=== PATIENT | female | born 1960 | race Caucasian/White ===

== ENCOUNTER 2023-04-22 07:38 | Outpatient (REF) | payer OTHER, SELFPAY ==
--- NOTE | ~2023-04-22 | MM_ITS ---
EXAMINATION: MM SCREENING DIGITAL BREAST TOMOSYNTHESIS, BILATERAL CLINICAL INFORMATION: Screening. Asymptomatic. COMPARISON: Mammography: This study is compared with prior exams dating back to 2013. TECHNIQUE: Digital breast tomosynthesis is performed in both the craniocaudal and mediolateral oblique views along with computer-aided detection (CAD). Synthesized 2D images are generated from the tomosynthesis. FINDINGS: There are scattered areas of fibroglandular density (ACR BI-RADS breast composition Category b). There are no significant masses, abnormal calcifications, or other abnormalities. MM/MM tomosynthesis screening BI IMPRESSION: No mammographic evidence of malignancy. ASSESSMENT: BI-RADS BI-RADS 1 - Negative RECOMMENDATION: Routine annual mammography screening. 1 year F/U This examination should not preclude the clinical evaluation of a suspicious palpable abnormality. This patient's information was entered into a reminder system with a target due date for their next mammogram.
== END 2023-04-22 07:39 | disposition home or self-care (01) ==
LOC: HO.MAMMO 07:38
PROVIDERS: PCP Internal Medicine; Visit Provider Internal Medicine
DX: Z12.31 Encounter for screening mammogram for malignant neoplasm of breast (principal)
CPT/HCPCS: 77063; 77067

== ENCOUNTER → 2023-04-22 07:45 | Outpatient (BNV) | payer OTHER, SELFPAY | PROVIDERS: PCP Internal Medicine; Visit Provider Radiology Diagnostic Radiology | DX: Z12.31 Encounter for screening mammogram for malignant neoplasm of breast (principal) | CPT/HCPCS: 77063; 77067 ==

== ENCOUNTER 2023-12-29 15:00 | Outpatient (AMB) | payer OTHER, SELFPAY ==
--- NOTE | 2023-12-29 15:17 | A.OFFVIS_ITS ---
Vital Signs 12/29/23 15:18 Height 5 ft 4 in Weight 187 lb BMI 32.1 Pulse 88 Pulse Source Pulse Oximeter Pulse Oximetry (%) 96 Oxygen Delivery Method Room Air Intake Visit Reasons: COPD Data Analytics Architect Required: No Allergies No Known Allergies Allergy (Unverified 12/29/23 15:19) HPI Comments Details: The patient is here for pulmonary evaluation. The patient is a 63 year woman with a known history of COPD presenting with worsening respiratory symptoms. The patient states that she has a hard time quitting smoking. She has been smoking for most of her life. She did do very well on Chantix where she almost quit smoking where she was down to 2 cigarettes a day. Although she was trying to quit smoking with the and that made it difficult. The patient will try again quitting with the by using the same protocol which is the nicotine patch. She can also consider Wellbutrin. In the meantime she has productive cough with yellowish phlegm. Moderate severity. She has component of chronic bronchitis. The patient can try azithromycin 3 times a week least 4 month or 2 to see the improvements. The patient also has significant tachycardia with minimal activity. Heart rate was up to 116. Oxygen was stable. Will go ahead and request an EKG to make sure that her intervals are stable specially while using azithromycin. The patient also undergo a PFTs and then she will have a evaluation. She is participating in the lung cancer screening program at [facility]. Last CT scan was rads 1 which is reassuring. She will continue to participate there with a CT scans. [facility] Medical History (Updated 12/31/23 @ 23:27 by Jerrod Capps MD) Tobacco dependence Dyspnea Chronic cough Tachycardia COPD (chronic obstructive pulmonary disease) Social History (Updated 12/29/23 @ 15:21 by NENA Steen) Patient Tobacco Use Status: Current everyday Tobacco user Tobacco use type: Cigarette Years Smoked: 40 Years Review of Systems Const Denies fever(s) Eyes Reports no additional complaints ENT Reports nasal congestion Card Denies chest pain and Reports dyspnea on exertion Resp Reports chest congestion, Reports cough, Reports dyspnea on exertion and Reports wheezing GI Reports no additional complaints Musc Reports no additional complaints Skin/Breast Denies rash Aller/Immun Reports wheezing Physical Exam Vital Signs: Last Vital Signs Pulse 88 12/29/23 15:18 Pulse Ox 96 12/29/23 15:18 Oxygen Delivery Method Room Air 12/29/23 15:18 BMI result Body Mass Index 32.1 Const General: comfortable Neck Neck: Yes supple Chest Chest palpation & inspection: normal inspection of the chest Resp Effort & Inspection: normal respiratory effort and prolonged expiratory phase Auscultation: rhonchi and diminished lung sounds Cardio Heart sounds: S1 normal heart sound present and S2 normal heart sound present GI Palpation (GI): Soft to palpation Skin General skin exam: no rashes or lesions noted Extrem General: No clubbing and No cyanosis Assessment & Plan Assessment & Plan (1) COPD (chronic obstructive pulmonary disease): Code(s): J44.9 - Chronic obstructive pulmonary disease, unspecified Category: Medical Qualifiers: COPD type: chronic bronchitis Chronic bronchitis type: mixed simple and mucopurulent Qualified Code(s): J41.8 - Mixed simple and mucopurulent chronic bronchitis (2) Tachycardia: Code(s): R00.0 - Tachycardia, unspecified Category: Medical (3) Chronic cough: Code(s): R05.3 - Chronic cough Category: Medical (4) Dyspnea: Code(s): R06.00 - Dyspnea, unspecified Category: Medical Qualifiers: Dyspnea type: dyspnea on exertion Qualified Code(s): R06.09 - Other forms of dyspnea (5) Tobacco dependence: Code(s): F17.200 - Nicotine dependence, unspecified, uncomplicated Category: Medical Plan start Trelegy dailu GABRIEL as needed tobacco cessation: will use the patch, consider chantix Start Azithromycin 6-8 weeks EKG PFTs F/U 2-3 months Orders: Orders PFT pulmonary function test Today J41.8 - Mixed simple and mucopurulent chroni c bronchitis Medications: New azithromycin Take 1 tablet on Monday/Monday/Monday 250 mg PO 3XW 28 days 12 tabs 1RF K21.9 - Gastro-esophageal reflux disease without esophagitis nicotine 1 patch transdermal DAILY 28 days 28 ea 6RF [id number] 200-62.5-25 mcg (Trelegy Ellipta) 1 inh inhalation DAILY 30 days 60 ea 12RF Coding Level of Care Code New Pt Level 4 (97287) Diagnoses Mixed simple and mucopurulent chronic bronchitis J41.8 COPD type: chronic bronchitis Chronic bronchitis type: mixed simple and mucopurulent Tachycardia R00.0 Chronic cough R05.3 Dyspnea on exertion R06.09 Dyspnea type: dyspnea on exertion Tobacco dependence F17.200 Time Spent (min) 40
[2023-12-29 15:18] VITALS: PULSE 88; O2SAT 96; BMI 32.1
== END 2023-12-29 15:57 | disposition home or self-care (01) ==
PROVIDERS: PCP Internal Medicine; Visit Provider Hospitalist
DX: J41.8 Mixed simple and mucopurulent chronic bronchitis (principal); R00.0 Tachycardia, unspecified; R05.3 Chronic cough; R06.09 Other forms of dyspnea; F17.200 Nicotine dependence, unspecified, uncomplicated
CPT/HCPCS: 99204

== ENCOUNTER → 2023-12-29 15:00 | Outpatient (BNVA) | payer OTHER, SELFPAY | PROVIDERS: PCP Internal Medicine; Visit Provider Hospitalist ==

== ENCOUNTER 2024-02-16 08:41 | Outpatient (REF) | payer OTHER, SELFPAY ==
[2024-02-16 08:05] VITALS: PULSE 80; RESP 16; O2SAT 99
--- NOTE | 2024-02-16 09:00 | PFT_ITS ---
Flows: FEV1: 81 % of predicted at 1.19 L FVC: 86 % of predicted at 2.58 L FEV1/FVC: 74 % Bronchodilator response: Absent Volumes: Total lung capacity: 92 % of predicted at 4.63 L Residual volume: 120 % of predicted at 2.19 L Slow vital capacity: 76 % of predicted at 2.44 L Expiratory reserve volume: 38 % of predicted at 0.29 L Diffusion capacity: Normal Impression: No obstructive or restrictive ventilatory defect. No bronchodilator response. Increased residual volume suggests air trapping. Decreased expiratory reserve volume suggests extrathoracic restriction likely secondary to abdominal obesity. MTDD
== END 2024-02-16 08:42 | disposition home or self-care (01) ==
LOC: HO.RESP 08:41
PROVIDERS: PCP Family Medicine; Visit Provider Hospitalist
DX: J41.8 Mixed simple and mucopurulent chronic bronchitis (principal)
CPT/HCPCS: 94010; 94640; 94727; 94729

== ENCOUNTER 2024-02-23 08:42 | Outpatient (AMB) | payer OTHER, SELFPAY ==
[2024-02-23 09:00] VITALS: BP 126/60; PULSE 86; O2SAT 97; BMI 31.9
--- NOTE | 2024-02-23 09:00 | A.OFFVIS_ITS ---
Vital Signs 02/23/24 09:00 Height 5 ft 4 in Weight 185 lb 10.067 oz BMI 31.9 BP 126/60 Blood Pressure Location Lt brachial Position Sitting Pulse 86 Pulse Source Pulse Oximeter Pulse Oximetry (%) 97 Oxygen Delivery Method Room Air Intake Visit Reasons: COPD Document Control Manager Required: No Allergies No Known Allergies Allergy (Unverified 02/23/24 09:03) HPI Comments Details: The patient is a 63 year woman with a known history of COPD presenting with worsening respiratory symptoms. The patient states that she has a hard time quitting smoking. She has been smoking for most of her life. She did do very well on Chantix where she almost quit smoking where she was down to 2 cigarettes a day. Although she was trying to quit smoking with the and that made it difficult. The patient will try again quitting with the by using the same protocol which is the nicotine patch. She can also consider Wellbutrin. In the meantime she has productive cough with yellowish phlegm. Moderate severity. She has component of chronic bronchitis. The patient can try azithromycin 3 times a week least 4 month or 2 to see the improvements. The patient also has significant tachycardia with minimal activity. Heart rate was up to 116. Oxygen was stable. Will go ahead and request an EKG to make sure that her intervals are stable specially while using azithromycin. The patient also undergo a PFTs and then she will have a evaluation. She is participating in the lung cancer screening program at [facility]. Last CT scan was rads 1 which is reassuring. She will continue to participate there with a CT scans. 02/23/2024 the patient is here for a pulmonary follow-up visit. Overall she is doing okay. Unfortunately she continues to smoke cigarettes. She has not put on the patch as of yet. She has not ready to quit altogether. She is thinking about it. We did review her pulmonary function studies in the actually look pretty decent. The patient does have a trend of air trapping and does have evidence of chronic bronchitis but no significant obstruction at this time. In addition to that she did try the azithromycin for few weeks. She did not see any significant improvement. She still has chronic bronchitis. In view of her significant chronic bronchitis she will be a good candidate for Daliresp. I will start her on small dose of 250 mcg. She understands about the adverse effects and GI symptoms. Hopefully she can develop tolerance and then continue the medicine. In addition to that she has been participating in the lung cancer screening program at [facility]. She has not been called yet but she is due for CT scan the summer. If she does not hear back by the end of the summer she can always call and we can establish her at [facility]. Otherwise follow-up in 6 months she will continue with current respiratory therapy if she has any new issues she can call for an earlier assessment. [facility] Medical History (Updated 12/31/23 @ 23:27 by Jerrod Capps MD) Tobacco dependence Dyspnea Chronic cough Tachycardia COPD (chronic obstructive pulmonary disease) Social History (Updated 12/29/23 @ 15:21 by NENA Steen) Patient Tobacco Use Status: Current everyday Tobacco user Tobacco use type: Cigarette Years Smoked: 40 Years Review of Systems Const Denies fever(s) Eyes Reports no additional complaints ENT Reports nasal congestion Card Denies chest pain and Reports dyspnea on exertion Resp Reports chest congestion, Reports cough, Reports dyspnea on exertion and Reports wheezing GI Reports no additional complaints Musc Reports no additional complaints Skin/Breast Denies rash Aller/Immun Reports wheezing Physical Exam Vital Signs: Last Vital Signs Pulse 86 02/23/24 09:00 BP 126/60 02/23/24 09:00 Pulse Ox 97 02/23/24 09:00 Oxygen Delivery Method Room Air 02/23/24 09:00 BMI result Body Mass Index 31.9 Const General: comfortable Neck Neck: Yes supple Chest Chest palpation & inspection: normal inspection of the chest Resp Effort & Inspection: normal respiratory effort and prolonged expiratory phase Auscultation: rhonchi and diminished lung sounds Cardio Heart sounds: S1 normal heart sound present and S2 normal heart sound present GI Palpation (GI): Soft to palpation Skin General skin exam: no rashes or lesions noted Extrem General: No clubbing and No cyanosis Assessment & Plan Assessment & Plan (1) COPD (chronic obstructive pulmonary disease): Code(s): J44.9 - Chronic obstructive pulmonary disease, unspecified Category: Medical Qualifiers: COPD type: chronic bronchitis Chronic bronchitis type: mixed simple and mucopurulent Qualified Code(s): J41.8 - Mixed simple and mucopurulent chronic bronchitis (2) Tachycardia: Code(s): R00.0 - Tachycardia, unspecified Category: Medical (3) Chronic cough: Code(s): R05.3 - Chronic cough Category: Medical (4) Dyspnea: Code(s): R06.00 - Dyspnea, unspecified Category: Medical Qualifiers: Dyspnea type: dyspnea on exertion Qualified Code(s): R06.09 - Other forms of dyspnea (5) Tobacco dependence: Code(s): F17.200 - Nicotine dependence, unspecified, uncomplicated Category: Medical Plan continue Trelegy daily GABRIEL as needed tobacco cessation: will use the patch, consider chantix Stop Azithromycin Add Daliresp 250mcg LDCT at [facility] F/U 6 months Medications: New roflumilast (Daliresp) 250 mcg PO DAILY 30 tabs 11RF 30 days J44.9 - Chronic obstructive pulmonary disease, unspecified Coding Level of Care Code Est Pt Level 4 (93631) Diagnoses Mixed simple and mucopurulent chronic bronchitis J41.8 COPD type: chronic bronchitis Chronic bronchitis type: mixed simple and mucopurulent Tachycardia R00.0 Chronic cough R05.3 Dyspnea on exertion R06.09 Dyspnea type: dyspnea on exertion Tobacco dependence F17.200 Time Spent (min) 16
== END 2024-02-23 09:18 | disposition home or self-care (01) ==
PROVIDERS: PCP Internal Medicine; Visit Provider Hospitalist
DX: J41.8 Mixed simple and mucopurulent chronic bronchitis (principal); R00.0 Tachycardia, unspecified; R05.3 Chronic cough; R06.09 Other forms of dyspnea; F17.200 Nicotine dependence, unspecified, uncomplicated
CPT/HCPCS: 99214

== ENCOUNTER → 2024-02-23 08:42 | Outpatient (BNVA) | payer OTHER, SELFPAY | PROVIDERS: PCP Internal Medicine; Visit Provider Hospitalist | DX: K21.9 Gastro-esophageal reflux disease without esophagitis (principal) ==

== ENCOUNTER 2024-04-27 07:34 | Outpatient (REF) | payer OTHER, SELFPAY ==
--- NOTE | ~2024-04-27 | MM_ITS ---
EXAMINATION: MM SCREENING DIGITAL BREAST TOMOSYNTHESIS, BILATERAL CLINICAL INFORMATION: Screening. Asymptomatic. COMPARISON: Mammography: Comparison is made with available priors TECHNIQUE: Digital breast mammography with tomosynthesis is performed in both the craniocaudal and mediolateral oblique views along with computer-aided detection (CAD). FINDINGS: There are scattered areas of fibroglandular density (ACR BI-RADS breast composition Category b). There are no significant masses, abnormal calcifications, or other abnormalities. MM/MM tomosynthesis screening BI IMPRESSION: No mammographic evidence of malignancy. ASSESSMENT: BI-RADS BI-RADS 1 - Negative RECOMMENDATION: Routine annual mammography screening. 1 year F/U This examination should not preclude the clinical evaluation of a suspicious palpable abnormality. This patient's information was entered into a reminder system with a target due date for their next mammogram. Electronically signed by: Dora Bryson DO 05/10/2024 08:55 AM EDT
== END 2024-04-27 07:35 | disposition home or self-care (01) ==
LOC: HO.MAMMO 07:34
PROVIDERS: PCP Internal Medicine; Visit Provider Internal Medicine
DX: Z12.31 Encounter for screening mammogram for malignant neoplasm of breast (principal)
CPT/HCPCS: 77063; 77067

== ENCOUNTER → 2024-04-27 07:45 | Outpatient (BNV) | payer OTHER, SELFPAY | PROVIDERS: PCP Internal Medicine; Visit Provider Internal Medicine | DX: Z12.31 Encounter for screening mammogram for malignant neoplasm of breast (principal) | CPT/HCPCS: 77063; 77067 ==

== ENCOUNTER 2024-08-23 08:53 | Outpatient (AMB) | payer OTHER, SELFPAY ==
--- NOTE | 2024-08-23 08:56 | A.OFFVIS_ITS ---
Vital Signs 08/23/24 08:57 Height 5 ft 4 in Weight 190 lb 11.198 oz BMI 32.7 BP 122/64 Blood Pressure Location Rt brachial Position Sitting Pulse 74 Pulse Source Pulse Oximeter Pulse Oximetry (%) 99 Oxygen Delivery Method Room Air Intake Visit Reasons: COPD Allergies No Known Allergies Allergy (Unverified 08/23/24 09:00) HPI Comments Details: The patient is a 64 year woman with a known history of COPD presenting with worsening respiratory symptoms. The patient states that she has a hard time quitting smoking. She has been smoking for most of her life. She did do very well on Chantix where she almost quit smoking where she was down to 2 cigarettes a day. Although she was trying to quit smoking with the and that made it difficult. The patient will try again quitting with the by using the same protocol which is the nicotine patch. She can also consider Wellbutrin. In the meantime she has productive cough with yellowish phlegm. Moderate severity. She has component of chronic bronchitis. The patient can try azithromycin 3 times a week least 4 month or 2 to see the improvements. The patient also has significant tachycardia with minimal activity. Heart rate was up to 116. Oxygen was stable. Will go ahead and request an EKG to make sure that her intervals are stable specially while using azithromycin. The patient also undergo a PFTs and then she will have a evaluation. She is participating in the lung cancer screening program at [facility]. Last CT scan was rads 1 which is reassuring. She will continue to participate there with a CT scans. 02/23/2024 the patient is here for a pulmonary follow-up visit. Overall she is doing okay. Unfortunately she continues to smoke cigarettes. She has not put on the patch as of yet. She has not ready to quit altogether. She is thinking about it. We did review her pulmonary function studies in the actually look pretty decent. The patient does have a trend of air trapping and does have evidence of chronic bronchitis but no significant obstruction at this time. In addition to that she did try the azithromycin for few weeks. She did not see any significant improvement. She still has chronic bronchitis. In view of her significant chronic bronchitis she will be a good candidate for Daliresp. I will start her on small dose of 250 mcg. She understands about the adverse effects and GI symptoms. Hopefully she can develop tolerance and then continue the medicine. In addition to that she has been participating in the lung cancer screening program at [facility]. She has not been called yet but she is due for CT scan the summer. If she does not hear back by the end of the summer she can always call and we can establish her at [facility]. Otherwise follow-up in 6 months she will continue with current respiratory therapy if she has any new issues she can call for an earlier assessment. 08/23/2024 the patient is here for a pulmonary follow-up visit. The patient overall has been doing about the same. She is using the Trelegy. She still complains of productive cough moderate secretions. Difficult to expectorate sometimes. She feels that she is not taking enough water. Unfortunately she is still smoking cigarettes. She has not tried the patch because she is not ready to do that yet. Although we did talk about the Nicotrol inhaler. It may not be available but if it is she can try it. I did instruct her on how to use it if she can get it. I also gave her information about the quitting program here [place] so she can seek for further guidance when she is ready. She is participating in the lung cancer screening program I [facility]. She apparently had a CT scan in the fall I do not have those results but she was told that it was okay. In addition to that she has been tolerating the Daliresp. Seems to be well without any adverse effects. She is on the lower dose will going to increase to the 500 mcg dose for the therapeutic effect. The patient returns in the fall of 2024. She has not issues prior to that she will call for an earlier assessment. [facility] Medical History (Updated 12/31/23 @ 23:27 by Jerrod Capps MD) Tobacco dependence Dyspnea Chronic cough Tachycardia COPD (chronic obstructive pulmonary disease) Social History (Updated 08/23/24 @ 09:00 by Shirley Vaughan CMA) Patient Tobacco Use Status: Current everyday Tobacco user Tobacco use type: Cigarette Cigarettes Per Day: 15 Years Smoked: 40 Years Review of Systems Const Denies fever(s) Eyes Reports no additional complaints ENT Reports nasal congestion Card Denies chest pain and Reports dyspnea on exertion Resp Reports chest congestion, Reports cough, Reports dyspnea on exertion and Reports wheezing GI Reports no additional complaints Musc Reports no additional complaints Skin/Breast Denies rash Aller/Immun Reports wheezing Physical Exam Vital Signs: Last Vital Signs Pulse 74 08/23/24 08:57 BP 122/64 08/23/24 08:57 Pulse Ox 99 08/23/24 08:57 Oxygen Delivery Method Room Air 08/23/24 08:57 BMI result Body Mass Index 32.7 Const General: comfortable Neck Neck: Yes supple Chest Chest palpation & inspection: normal inspection of the chest Resp Effort & Inspection: normal respiratory effort and prolonged expiratory phase Auscultation: rhonchi and diminished lung sounds Cardio Heart sounds: S1 normal heart sound present and S2 normal heart sound present GI Palpation (GI): Soft to palpation Skin General skin exam: no rashes or lesions noted Extrem General: No clubbing and No cyanosis Assessment & Plan Assessment & Plan (1) COPD (chronic obstructive pulmonary disease): Code(s): J44.9 - Chronic obstructive pulmonary disease, unspecified Category: Medical Qualifiers: COPD type: chronic bronchitis Chronic bronchitis type: mixed simple and mucopurulent Qualified Code(s): J41.8 - Mixed simple and mucopurulent chronic bronchitis (2) Chronic cough: Code(s): R05.3 - Chronic cough Category: Medical (3) Dyspnea: Code(s): R06.00 - Dyspnea, unspecified Category: Medical Qualifiers: Dyspnea type: dyspnea on exertion Qualified Code(s): R06.09 - Other forms of dyspnea (4) Tobacco dependence: Code(s): F17.200 - Nicotine dependence, unspecified, uncomplicated Category: Medical Plan continue Trelegy daily GABRIEL as needed tobacco cessation: will use the patch, consider chantix Stopped Azithromycin increase Daliresp 500mcg LDCT at [facility] F/U 6-8 months Medications: New roflumilast (Daliresp) 500 mcg PO DAILY 30 tabs 11RF 30 days nicotine (Nicotrol) 10 mg inhalation Q2-4H 168 ea 0RF nicotine cravings 30 days Discontinued roflumilast (Daliresp) Discontinued Reason: Doctor's Order 250 mcg PO DAILY 30 days 30 tabs 11RF J44.9 - Chronic obstructive pulmonary disease, unspecified Coding Level of Care Code Est Pt Level 4 (88692) Diagnoses Mixed simple and mucopurulent chronic bronchitis J41.8 COPD type: chronic bronchitis Chronic bronchitis type: mixed simple and mucopurulent Chronic cough R05.3 Dyspnea on exertion R06.09 Dyspnea type: dyspnea on exertion Tobacco dependence F17.200 Time Spent (min) 16
[2024-08-23 08:57] VITALS: BP 122/64; PULSE 74; O2SAT 99; BMI 32.7
== END 2024-08-23 09:14 | disposition home or self-care (01) ==
PROVIDERS: PCP Internal Medicine; Visit Provider Hospitalist
DX: J41.8 Mixed simple and mucopurulent chronic bronchitis (principal); R05.3 Chronic cough; R06.09 Other forms of dyspnea; F17.200 Nicotine dependence, unspecified, uncomplicated
CPT/HCPCS: 99214

== ENCOUNTER 2025-04-28 08:48 | Outpatient (AMB) | payer OTHER, SELFPAY ==
--- OUTSIDE RECORDS SUMMARY | 2025-04-23 09:00 | XMS_ITS | Encounter Summary ---
Author Organization [facility] Address [address] [place] [address] Phone Care Team Providers Care Boiler Out Name Role Phone Jose Nails MD Unavailable Salvador Drew PA-C Primary Care Provider [phone] Reason for Referral * MRI/CAT Scan - Authorized Specialty Diagnoses / Procedures Referred By Contpablo t Referred To Contact Radiology Diagnoses Cigarette smoker Procedures CT Chest Lung Cancer Screening Initial Or Annual CHG COMPUTED TOMOGRAPHY THORAX LW DOSE LNG CA SCR C- Salvador Drew PA-C [address] [place], [place] Phone: tel: fax: [email or web address] Referral ID Status Reason Start Date Expiration Date V isits Requested Visits Authorized [id number] Authorized 04/23/2025 06/22/2025 1 1 Reason for Visit * Reason Comments Follow Up Visit 6 month Encounter Details Date Type Department Care Team (Latest Contact Info) Description 04/23/2025 9:00 AM EDT Office Visit [facility] [place] Internal [facility] [address] [place] [address] Salvador Drew PA-C [address] [place], [place] [email or web address] Chronic upper back pain (Primary Dx); Chronic, continuous use of opioids; Flu vaccine need; Diet-controlled diabetes mellitus; Cigarette smoker; Urinary frequency; Needs flu shot; Mixed hyperlipidemia Social History Tobacco Use Types Packs/Day Years Used Date Smoking Tobacco: Every Day Cigarettes 0.5 49.7 Started: 1975 Smokeless Tobacco: Never Comments:will start [employer] Alcohol Use Standard Drinks/Week Comments Not Currently 0 (1 standard drink = 0.6 oz pur e alcohol) Child or Family Care Answer Date Record ed Do you have problems with on e of the following making it difficult for you to work, study, or receive health care? No 09/18/2024 Education Answer Date Recorded Are you interested in help w ith more adult education (for example, completing high school, GED, job training, learning the Slovenian language, technical skills, or developing parenting skills)? No 09/18/2024 Are you concerned about learning? Not on file 09/18/2024 No 09/18/2024 Yes 09/18/2024 Food Answer Date Recorded Within the past 6 months we worried whether our food would run out before we got money to buy more. Never True 09/18/2024 Within the past 6 months the food we bought just didn't last and we didn't have enough money to get more. Never True Residential Stability Answer Date Recor ded What is your housing situation today? I have rhianna solitario 09/18/2024 How many times have you move d in the past 12 months? Zero (I did not move) 09/18/2024 Paying for Meds Answer Date Recorded Do you have trouble paying for medicines? No 09/18/2024 Paying Utility Bills Answer Date Record ed Do you have trouble paying your heating or elect ricity bill? No 09/18/2024 Transportation Answer Date Recorded Has the lack of transportati on kept you from medical appointments or from getting medications? No 09/18/2024 Unemployment Answer Date Recorded Are you currently unemployed or working on a part-time or temporary basis, and looking for work? No 06/02/2021 Digital Access Answer Date Recorded No 09/18/2024 Yes 09/18/2024 Do you have reliable internet access at home? Ye s 09/18/2024 Do you have a device (e.g., phone, tablet, computer) with a working camera? Yes 09/18/2024 Intimate Partner Violence Answer Date R ecorded Denied Basic Needs Not on file 09/18/2024 In the past 12 months have y ou been in a relationship with a person who hurts, threatens, or tries to control you? No 09/18/2024 Worried food would run out Not on file 09/18 In the past 12 months have y ou been in a relationship with a person who hurts, threatens, or tries to control you? No 09/18/2024 Comments Unknown Sex and Gender Information Value Date Recorded Sex Assigned at Not on file Legal Sex Female 9:50 PM EDT Gender Identity Not on file Sexual Orientation Not on file documented as of this encounter Last Filed Vital Signs Vital Sign Reading Time Taken Comments Blood Pressure 114/60 04/23/2025 9:06 AM EDT Pulse 66 04/23/2025 9:06 AM EDT Temperature - - Respiratory Rate 16 04/23/2025 9:06 AM EDT Oxygen Saturation 98% 04/23/2025 9:06 AM EDT Inhaled Oxygen Concentration - - Weight 81.8 kg (180 lb 6.4 oz) 04/23/2025 9:06 A M EDT Height 160.7 cm (5' 3.27 ) 04/23/2025 9:06 AM ED T Body Mass Index 31.69 04/23/2025 9:06 AM EDT documented in this encounter Progress Notes * Salvador Drew PA-C - 04/23/2025 9:00 AM EDT FOLLOW UP HPI Raquel is a 65 y.o. with a past medical history of chronic back pain on tramadol, diabetes mellitus,hyperlipidemia, plantar fasciitis, postmenopausal, COPD, and ulcer for 6 month follow up. She reports experiencing chronic upper back pain, which she manages with tramadol during her work hours. At home, she resorts to Tylenol for pain relief. She also experiences age-related joint pain, particularly in cold weather, but nothing out of the ordinary. She mentions her back pain is the same and she deals with it. Her COPD is under the care of a dip stand loader, follow on Monday. Her Daliresp dosage was increased from 250 mcg to 500 mcg daily. She acknowledges inadequate water intake and continues to use Trelegydaily and albuterol inhaler as needed, although its use has been infrequent recently. She has her good and bad days. She reports no issues with her cholesterol levels while on atorvastatin for her hyperlipidemia. Patient has a history of diabetes which is diet controlled with her last hemoglobin A1c back in , hgb 7.1 which is up from previous at 6.5. Patient has been checking her sugars daily which have been ranging from 97-140s. Her highest reading was 168. She normally checks her sugars in the am,fasting- sometimes she takes it after drinking her coffee which has creamer and 1 splenda. Her diabetes appears to be well-managed. She has been working on cutting out sweets. She has been eating fresh veggies from her garden. She does a lot of walking at work, roughly b/w [id number] steps. She mentions some urinary urgency, frequency. She notes it is mainly in the am. During work hours it is not bad. She notes she typically has a couple of cups of coffee in am and then in the afternoontwo more cups after 4 pm. She denies any pain with urination. She denies any abd pain. Pertinent FamHx/ SocHx Past Medical History: Diagnosis Date Chronic back pain Chronic obstructive pulmonary disease chronic brochiits Diabetes mellitus 2 para 2 Hyperlipidemia Plantar fasciitis Postmenopausal 2012 last menses 2012 Ulcer 2006 leg ulcers for one year, ? etiology Current Outpatient Medications Medication Sig albuterol 90 mcg/actuation inhaler INHALE 2 PUFFS BY MOUTH EVERY 4 HOURS NEEDED FOR DIFFICULT BREATHING atorvastatin (LIPITOR) 40 MG tablet TAKE 1 TABLET(40 MG) BY MOUTH DAILY multivitamins Chew Take 1 tablet by mouth daily. roflumilast (DALIRESP) 500 mcg Tab Take 1 tablet by mouth every morning. traMADoL (ULTRAM) 50 mg tablet TAKE 1 TABLET(50 MG) BY MOUTH EVERY 8 HOURS NEEDED FOR PAIN TRELEGY ELLIPTA 200-62.5-25 mcg inhaler Inhale 1 puff into the lungs daily. respiratory syncytial virus, preF A and B, PF, (ABRYSVO) 120 mcg/0.5 mL IM injection Inject 0.5 mL into the muscle once for 1 dose. PE BP 114/60 (BP Location: Right arm, Patient Position: Sitting, Cuff Size: Large) Pulse 66 Resp 16 Ht 160.7 cm (5' 3.27 ) Wt 81.8 kg (180 lb 6.4 oz) SpO2 98% BMI 31.69 kg/m?? Gen: Alert, pleasant and cooperative, no acute distress. HEENT: Atraumatic, normocephalic. . Lungs clear to auscultation bilaterally without accessory breath sounds or increased respiratory effort. CV: RRR, no murmurs, rubs, gallops appreciated. Problem List Items Addressed This Visit Endocrine Mixed hyperlipidemia Continue lipitor 40mg daily and obtain a lipid panel Diet-controlled diabetes mellitus Patient has a history of diabetes which is diet controlled. Patient mentions that her last hemoglobin A1c was noted at 7.1 back in September 2024 since then she had made dietary changes cutting out sugars. We will repeat a hemoglobin A1c and continue diet and exercise. Relevant Orders Hemoglobin A1c Lipid panel Behavioral and Developmental Cigarette smoker Patient states that she smokes a half a pack of cigarettes per day over the course of the last [address] lung cancer screening annual exam ordered. Relevant Orders CT Chest Lung Cancer Screening Initial Or Annual Chronic, continuous use of opioids UTOX screen as the patient is currently on tramadol as needed for chronic back pain Signs and Symptoms Chronic upper back pain - Primary Patient with a history of chronic back pain on tramadol as needed for pain. Patient mentions her chronic back pain is the same and notes that she just deals with the discomfort and takes her medication as needed. MassPAT verified. Continue tramadol 50 mg every 8 hours as needed. UTOX obtained. Other Flu vaccine need Flu shot given Relevant Orders Influenza Vaccine (65yo up) High-Dose Trivalent Preservative Free IM (Completed) Urinary frequency Patient mentions that over the course of the last 3 weeks she has been experiencing urinary urgencyand frequency but denies any pain. She does consume 2 cups of coffee in the morning and in the afternoon which could definitely be contributing to her symptoms. I advised her to decrease her caffeineconsumption and drink more water Urinalysis obtained here in the office which revealed negative. Noantibiotics prescribed . Salvador Drew PA-C I spent a total of 23 min. during this clinical encounter was devoted to counseling and coordinating care including review of records, pertinent lab data and studies, as well as discussing diagnosticevaluation and work up, planned therapeutic interventions and future disposition of care. documented in this encounter Miscellaneous Notes * Assessment & Plan Note - Salvador Drew PA-C - 04/23/2025 10:02 AM EDT Associated Problem(s): Mixed hyperlipidemia Continue lipitor 40mg daily and obtain a lipid panel * Assessment & Plan Note - Salvador Drew PA-C - 04/23/2025 10:01 AM EDT Associated Problem(s): Cigarette smoker Patient states that she smokes a half a pack of cigarettes per day over the course of the last [address] lung cancer screening annual exam ordered. * Assessment & Plan Note - Salvador Drew PA-C - 04/23/2025 10:00 AM EDT Associated Problem(s): Urinary frequency Patient mentions that over the course of the last 3 weeks she has been experiencing urinary urgencyand frequency but denies any pain. She does consume 2 cups of coffee in the morning and in the afternoon which could definitely be contributing to her symptoms. I advised her to decrease her caffeineconsumption and drink more water Urinalysis obtained here in the office which revealed negative. Noantibiotics prescribed . * Assessment & Plan Note - Salvador Drew PA-C - 04/23/2025 9:59 AM EDT Associated Problem(s): Chronic upper back pain Patient with a history of chronic back pain on tramadol as needed for pain. Patient mentions her chronic back pain is the same and notes that she just deals with the discomfort and takes her medication as needed. MassPAT verified. Continue tramadol 50 mg every 8 hours as needed. UTOX obtained. * Assessment & Plan Note - Salvador Drew PA-C - 04/23/2025 9:58 AM EDT Associated Problem(s): Flu vaccine need Flu shot given * Assessment & Plan Note - Salvador Drew PA-C - 04/23/2025 9:58 AM EDT Associated Problem(s): Chronic, continuous use of opioids UTOX screen as the patient is currently on tramadol as needed for chronic back pain * Assessment & Plan Note - Salvador Drew PA-C - 04/23/2025 9:58 AM EDT Associated Problem(s): Diet-controlled diabetes mellitus Patient has a history of diabetes which is diet controlled. Patient mentions that her last hemoglobin A1c was noted at 7.1 back in September 2024 since then she had made dietary changes cutting out sugars. We will repeat a hemoglobin A1c and continue diet and exercise. documented in this encounter Plan of Treatment Upcoming Encounters Date Type Department Care Team (Late st Contact Info) Description 05/09/2025 Procedure Pass [facility] Endoscopy Admitting Dept Virtual Department [address] [place] [id number] 05/09/2025 10:30 AM EDT Hospital Encounter [facility] Endoscopy Admitting Dept Virtual Department [address] [place] [phone] Julio Cervantes MD [address] [place] [phone] 05/09/2025 10:30 AM EDT - 05/09/2025 11:00 AM EDT Surgery [facility] Endoscopy Admitting Dept Virtual Department [address] [place] [address] Julio Cervantes MD [address] [place] [phone] [email or web address] COLONOSCOPY 09/30/2025 7:20 AM EST Office Visit [facility] Internal Medicine [address] [place] [address] Salvador Drew PA-C [address] [place] [address] [email or web address] Scheduled Orders Name Type Priority Associated Diagnoses Orde r Schedule CT Chest Lung Cancer Screening Initial Or Annual Imaging Routine Cigarette smoker Expected: 04/23/2025, Expires: 10/21/2025 Scheduled Procedures Name Priority Associated Diagnoses Date/Ti me COLONOSCOPY Screen for colon cancer 05/09/2025 10:30 AM EDT documented as of this encounter Procedures Procedure Name Priority Date/Time Associated Diagnosis Comments POCT URINE DIPSTICK Routine 04/23/2025 1 0:06 AM EDT documented in this encounter Results * Lipid panel (04/23/2025 10:35 AM EDT) HDL 41 mg/dL [facility] Comment: Interpretation <40 mg/dL: Low HDL cholesterol (major risk factor for CHD) Greater than or equal to 60 mg/dL: High HDL cholesterol ( negative risk factor for CHD) HDL - cholesterol is affected by a number of factors, e.g. smoking, excerise, hormones, sex and age. CHOLESTEROL 152 0 - 240 mg/dL [facility] TRIGLYCERIDES 91 30 - 160 mg/dL [facility] LDL 93 50 - 129 mg/dL [facility] Comment: LDL levels in terms of risk for coronary heart disease: <100 mg/dL: Optimal 100-129 mg/dL: Near or above optimal 130-159 mg/dL: Borderline high 160-189 mg/dL: High >190 mg/dL: Very High CARDIAC RISK RATIO 3.7 3.3 - 4.4 C [facility] Blood 04/23/2025 10:3 5 AM EDT 04/23/2025 10:39 AM EDT Salvador Drew PA-C LAB BLOOD ORDERABLES Final Re sult Performing Organization Address City/[facility]/ZIP Co de Phone Number [facility] [address] [place] [address] * POCT Urine Dipstick (Automated) (04/23/2025 10:06 AM EDT) COLOR Yellow [facility] TURBIDITY Clear [facility] GLUCOSE, POCT Negative Negative [facility] KETONE, POCT Negative Negative [facility] OCCULT BLOOD, POCT Negative Negative [facility] SPECIFIC GRAVITY, POCT 1.025 1.001 - 1.030 [facility] ALBUMIN, POCT Negative Negative [facility] Bili Negative Negative [facility] Urobilinogen 0.2 <1.0 [facility] NITRITE, POCT Negative Negative [facility] PH, POCT 5.5 5.0 - 8.0 [facility] WBC SCREEN, POCT Negative Negative [facility] 04/23/2025 10:0 6 AM EDT 04/23/2025 10:09 AM EDT Salvador Drew PA-C POINT OF CARE TEST ORDERABLES Final Result Performing Organization Address [facility] Co de Phone Number [facility] [address] [place] [address], [facility] [phone] documented in this encounter Visit Diagnoses Diagnosis Chronic upper back pain- Primary Chronic, continuous use of opioids Flu vaccine need Diet-controlled diabetes mellitus Cigarette smoker Tobacco use disorder Urinary frequency Needs flu shot Need for prophylactic vaccination and inoculation against influenza Mixed hyperlipidemia Screen for colon cancer Special screening for malignant neoplasms, colon documented in this encounter Additional Health Concerns Assessment Noted Time PHQ-2 Depression Total Score: 0 02/05/20 25 4:26 PM EST documented as of this encounter Care Teams Boiler Out Relationship Specialty Start Date End Date Salvador Drew PA-C [address] [place] [phone] [email or web address] PCP - General Physician Tooler 04/24/24 Jose Nails MD [address] [place] [address] [phone] Internal Medicine 05/26/20 documented as of this encounter Additional Source Comments The information contained in this document represents components of the legal health record. It is not the complete legal health record.[facility]
--- OUTSIDE RECORDS SUMMARY | 2025-04-23 10:35 | XMS_ITS | Encounter Summary ---
Author Organization [facility] Address [address] [place] [address] Phone Care Team Providers Care Quill Cleaning Machine Operator Name Role Phone Jose Nails MD Unavailable [phone] Salvador Drew PA-C Primary Care Provider [phone] Encounter Details Date Type Department Care Team (Latest Contact Info) Description 04/23/2025 10:35 AM EDT - 04/23/2025 11:59 PM EDT Hospital Encounter [facility] [address], [place] [phone] Salvador Drew PA-C [address] [place], [place] [phone] [email or web address] Discharge Disposition: Home or Self Care Social History Tobacco Use Types Packs/Day Years [...] high school, GED, job training, learning the Beninese language, technical skills, or developing parenting skills)? [...] your housing situation today? I have rhianna sing 09/18/2024 How many times have you move [...] on file documented as of this encounter Medications at Time of Discharge albuterol 90 mcg/actuation inhaler INHALE 2 PUFFS BY MOUTH EVERY 4 HOURS NEEDED FOR DIFFICULT BREATHING 8 g 2 09/22/2023 atorvastatin (LIPITOR) 40 MG tabletIndications:Mi xed hyperlipidemia TAKE 1 TABLET(40 MG) BY MOUTH DAILY 90 tablet 3 10/18/2024 multivitamins Chew Take 1 tablet by mouth daily. roflumilast (DALIRESP) 500 mcg Tab Take 1 tablet by mouth every morning. 08/23/2024 traMADoL (ULTRAM) 50 mg tabletIndications:Ch ronic upper back pain TAKE 1 TABLET(50 MG) BY MOUTH EVERY 8 HOURS NEEDED FOR PAIN 30 tablet 03/27/2025 TRELEGY ELLIPTA 200-62.5-25 mcg inhaler Inhale 1 puff into the lungs daily. 02/19/2024 documented as of this encounter Plan of Treatment Upcoming Encounters Date Type Department Care Team (Late st Contact Info) Description 05/09/2025 Procedure Pass [facility] Endoscopy Admitting Dept Virtual Department [address] [place] [phone] 05/09/2025 10:30 AM EDT Hospital Encounter [facility] Endoscopy Admitting Dept Virtual Department [address] [place] [phone] Julio Cervantes MD [address] [place] [phone] 05/09/2025 10:30 AM EDT - 05/09/2025 11:00 AM EDT Surgery [facility] Endoscopy Admitting Dept Virtual Department [address] [place] [phone] Julio Cervantes MD [address] [place] [phone] COLONOSCOPY 09/30/2025 7:20 AM EST Office Visit [facility] [place] Internal Medicine [address] [place] [address] Salvador Drew PA-C [address] [place] [address] Scheduled Procedures Name Priority Associated Diagnoses Date/Ti me COLONOSCOPY Screen for colon cancer 05/09/2025 10:30 AM EDT documented as of this encounter Procedures Procedure Name Priority Date/Time Associated Diagnosis Comments HEMOGLOBIN A1C Routine 04/23/2025 10:35 AM EDT Diet-controlled diabetes mellitus LIPID PANEL Routine 04/23/2025 10:35 AM EDT Diet-controlled diabetes mellitus documented in this encounter Results * Lipid panel (04/23/2025 10:35 AM EDT) HDL 41 mg/dL [facility] Comment: Interpretation <40 mg/dL: Low HDL cholesterol (major risk factor for CHD) Greater than or equal to 60 mg/dL: High HDL cholesterol ( negative risk factor for CHD) HDL - cholesterol is affected by a number of factors, e.g. smoking, excerise, hormones, sex and age. CHOLESTEROL 152 0 - 240 mg/dL [facility] TRIGLYCERIDES 91 30 - 160 mg/dL [facility] LDL 93 50 - 129 mg/dL [facility] Comment: LDL levels in terms of risk for coronary heart disease: <100 mg/dL: Optimal 100-129 mg/dL: Near or above optimal 130-159 mg/dL: Borderline high 160-189 mg/dL: High >190 mg/dL: Very High CARDIAC RISK RATIO 3.7 3.3 - 4.4 C [facility] Blood 04/23/2025 10:3 5 AM EDT 04/23/2025 10:39 AM EDT us Salvador Drew PA-C LAB BLOOD ORDERABLES Final Re sult [facility] [address] [place] [address] * (ABNORMAL) Hemoglobin A1c (04/23/2025 10:35 AM EDT) HEMOGLOBIN A1C 6.7(H) 4.3 - 5.8 % [facility] Blood 04/23/2025 10:3 5 AM EDT 04/23/2025 10:39 AM EDT us Salvador Drew PA-C LAB BLOOD ORDERABLES Final Re sult [facility] [address] [place] [address] documented in this encounter Visit Diagnoses Diagnosis Diet-controlled diabetes mellitus Screen for colon cancer Special screening for malignant neoplasms, colon documented in this encounter Additional Health Concerns Assessment Noted Time PHQ-2 Depression Total Score: 0 09/18/19 25 4:26 PM EST documented as of this encounter Care Teams Quill Cleaning Machine Operator Relationship Specialty Start Date End Date Salvador Drew PA-C [address] [place] [address] [email or web address] PCP - General Physician Disability Hearing Officer 04/24/24 Jose Nails MD [address] [place] [address] [place] [address] [phone] Internal Medicine 05/26/20 documented as of this encounter Additional Source Comments The information contained in this document represents components of the legal health record. It is not the complete legal health record.[facility]
--- NOTE | 2025-04-28 08:50 | MHC.OFFVIS ---
Vital Signs 04/28/25 08:51 Height 5 ft 4 in Weight 181 lb BMI 31.1 BP 126/70 Blood Pressure Location Rt brachial Position Sitting Pulse 74 Pulse Source Pulse Oximeter Pulse Oximetry (%) 99 Oxygen Delivery Method Room Air Intake Visit Reasons: COPD Allergies No Known Allergies Allergy (Verified 04/28/25 08:56) HPI Comments Details: The patient is a 65 year woman with a known history of COPD presenting with worsening respiratory symptoms. The patient states that she has a hard time quitting smoking. She has been smoking for most of her life. She did do very well on Chantix where she almost quit smoking where she was down to 2 cigarettes a day. Although she was trying to quit smoking with the and that made it difficult. The patient will try again quitting with the by using the same protocol which is the nicotine patch. She can also consider Wellbutrin. In the meantime she has productive cough with yellowish phlegm. Moderate severity. She has component of chronic bronchitis. The patient can try azithromycin 3 times a week least 4 month or 2 to see the improvements. The patient also has significant tachycardia with minimal activity. Heart rate was up to 116. Oxygen was stable. Will go ahead and request an EKG to make sure that her intervals are stable specially while using azithromycin. The patient also undergo a PFTs and then she will have a evaluation. She is participating in the lung cancer screening program at [facility]. Last CT scan was rads 1 which is reassuring. She will continue to participate there with a CT scans. 02/23/2024 the patient is here for a pulmonary follow-up visit. Overall she is doing okay. Unfortunately she continues to smoke cigarettes. She has not put on the patch as of yet. She has not ready to quit altogether. She is thinking about it. We did review her pulmonary function studies in the actually look pretty decent. The patient does have a trend of air trapping and does have evidence of chronic bronchitis but no significant obstruction at this time. In addition to that she did try the azithromycin for few weeks. She did not see any significant improvement. She still has chronic bronchitis. In view of her significant chronic bronchitis she will be a good candidate for Daliresp. I will start her on small dose of 250 mcg. She understands about the adverse effects and GI symptoms. Hopefully she can develop tolerance and then continue the medicine. In addition to that she has been participating in the lung cancer screening program at [facility]. She has not been called yet but she is due for CT scan the summer. If she does not hear back by the end of the summer she can always call and we can establish her at [facility]. Otherwise follow-up in 6 months she will continue with current respiratory therapy if she has any new issues she can call for an earlier assessment. 08/23/2024 the patient is here for a pulmonary follow-up visit. The patient overall has been doing about the same. She is using the Trelegy. She still complains of productive cough moderate secretions. Difficult to expectorate sometimes. She feels that she is not taking enough water. Unfortunately she is still smoking cigarettes. She has not tried the patch because she is not ready to do that yet. Although we did talk about the Nicotrol inhaler. It may not be available but if it is she can try it. I did instruct her on how to use it if she can get it. I also gave her information about the quitting program here [place] so she can seek for further guidance when she is ready. She is participating in the lung cancer screening program I [facility]. She apparently had a CT scan in the fall I do not have those results but she was told that it was okay. In addition to that she has been tolerating the Daliresp. Seems to be well without any adverse effects. She is on the lower dose will going to increase to the 500 mcg dose for the therapeutic effect. The patient returns in the fall of 2024. She has not issues prior to that she will call for an earlier assessment. 04/28/2025 the patient is here for pulmonary follow-up visit. Overall the patient has been doing well. Denies any recent exacerbations. She continues to tolerate the Daliresp with the 500 mcg dose. She also continues with the inhalers. They have been affecting beneficial. No recent flare-ups. Need for prednisone or antibiotics. She is participating in the lung cancer screening program at [facility]. She was supposed to have a CAT scan but she had to reschedule. Hopefully she has it in the fall of 2024. When she gets 1 done she should send us a copy so we can have results here also on record. Unfortunately, she continues to smoke cigarettes although she has cut down. She needs to continue cutting down and quit altogether. She will call if she needs help with prescription medications or nicotine supplementation. For now she will continue to do it on her own pace cutting down further until she can stop completely. Will follow-up in a year's time if she has any issues prior to this she will call for an earlier assessment. [facility] Medical History (Updated 12/31/23 @ 23:27 by Jerrod Capps MD) Tobacco dependence Dyspnea Chronic cough Tachycardia COPD (chronic obstructive pulmonary disease) Social History (Updated 08/23/24 @ 09:00 by Shirley Vaughan CMA) Patient Tobacco Use Status: Current everyday Tobacco user Tobacco use type: Cigarette Cigarettes Per Day: 15 Years Smoked: 40 Years Review of Systems Const Denies fever(s) Eyes Reports no additional complaints ENT Reports nasal congestion Card Denies chest pain and Reports dyspnea on exertion Resp Reports chest congestion, Reports cough, Reports dyspnea on exertion and Denies wheezing GI Reports no additional complaints Musc Reports no additional complaints Skin/Breast Denies rash Aller/Immun Denies wheezing Physical Exam Vital Signs: Last Vital Signs Pulse 74 04/28/25 08:51 BP 126/70 04/28/25 08:51 Pulse Ox 99 04/28/25 08:51 Oxygen Delivery Method Room Air 04/28/25 08:51 BMI result Body Mass Index 31.1 Const General: comfortable Neck Neck: Yes supple Chest Chest palpation & inspection: normal inspection of the chest Resp Effort & Inspection: normal respiratory effort Auscultation: diminished lung sounds Cardio Heart sounds: S1 normal heart sound present and S2 normal heart sound present GI Palpation (GI): Soft to palpation Skin General skin exam: no rashes or lesions noted Extrem General: No clubbing and No cyanosis Assessment & Plan Assessment & Plan (1) COPD (chronic obstructive pulmonary disease): Code(s): J44.9 - Chronic obstructive pulmonary disease, unspecified Category: Medical Qualifiers: COPD type: chronic bronchitis Chronic bronchitis type: mixed simple and mucopurulent Qualified Code(s): J41.8 - Mixed simple and mucopurulent chronic bronchitis (2) Chronic cough: Code(s): R05.3 - Chronic cough Category: Medical (3) Dyspnea: Code(s): R06.00 - Dyspnea, unspecified Category: Medical Qualifiers: Dyspnea type: dyspnea on exertion Qualified Code(s): R06.09 - Other forms of dyspnea (4) Tobacco dependence: Code(s): F17.200 - Nicotine dependence, unspecified, uncomplicated Category: Medical Plan continue Trelegy daily GABRIEL as needed tobacco cessation: will use the patch, consider chantix Daliresp 500mcg [facility]CT at [facility] Fall 2024 F/U 8-12 months Coding Level of Care Code Est Pt Level 4 (65387) Diagnoses Mixed simple and mucopurulent chronic bronchitis J41.8 COPD type: chronic bronchitis Chronic bronchitis type: mixed simple and mucopurulent Chronic cough R05.3 Dyspnea on exertion R06.09 Dyspnea type: dyspnea on exertion Tobacco dependence F17.200 Time Spent (min) 16
[2025-04-28 08:51] VITALS: BP 126/70; PULSE 74; O2SAT 99; BMI 31.1
--- OUTSIDE RECORDS SUMMARY | 2025-04-28 10:03 | XMS_ITS | Encounter Summary ---
Author Organization [facility] Address [address] [place] [address] [place] [phone] Phone Care Team Providers Care Editorial Director Name Role Phone Sara Au NP Primary Care Provider [phone] Jose Nails MD Unavailable [phone] Ivy Mcdermott MD, MPH Primary Care Provid er Salvador DrewC Primary Care Provider [phone] Encounter Details Date Type Department Care Team (Late st Contact Info) Description 04/28/2022 Procedure Pass [facility], Ct Scan - [address] [address] Social History Tobacco Use Types Packs/Day Years Used Date Smoking Tobacco: Every Day Cigarettes 0.5 49.7 Started: 1976 Smokeless Tobacco: Never Comments:will start Chantix Alcohol Use Standard Drinks/Week Comments No 0 (1 standard drink = 0.6 oz pur e alcohol) Child or Family Care Answer Date Record ed Do you have problems with on e of the following making it difficult for you to work, study, or receive health care? No 06/02/2021 Education Answer Date Recorded Are you interested in help w ith more adult education (for example, completing high school, GED, job training, learning the [place] language, technical skills, or developing parenting skills)? No 06/02/2021 Food Answer Date Recorded Within the past 6 months we worried whether our food would run out before we got money to buy more. Never True 06/02/2021 Within the past 6 months the food we bought just didn't last and we didn't have enough money to get more. Never True Residential Stability Answer Date Recor ded What is your housing situation today? I have rhianna solitario 06/02/2021 How many times have you move d in the past 12 months? Zero (I did not move) 06/02/2021 Paying for Meds Answer Date Recorded Do you have trouble paying for medicines? No 06/02/2021 Paying Utility Bills Answer Date Record ed Do you have trouble paying your heating or elect ricity bill? No 06/02/2021 Transportation Answer Date Recorded Has the lack of transportati on kept you from medical appointments or from getting medications? No 06/02/2021 Unemployment Answer Date Recorded Are you currently unemployed or working on a part-time or temporary basis, and looking for work? No 06/02/2021 Comments Unknown Sex and Gender Information Value Date Recorded Sex Assigned at Not on file Legal Sex Female 9:50 PM EDT Gender Identity Not on file Sexual Orientation Not on file documented as of this encounter Plan of Treatment Upcoming Encounters Date Type Department Care Team (Late st Contact Info) Description 05/09/2025 Procedure Pass [facility] Admitting Dept Virtual Department [address] [place] [phone] 05/09/2025 10:30 AM EDT Hospital Encounter [facility] Admitting [facility] Virtual Department [address] [place] [phone] Julio Cervantes MD [address] [place] [phone] 05/09/2025 10:30 AM EDT - 05/09/2025 11:00 AM EDT Surgery [facility] Admitting Dept Virtual Department [address] [place] [phone] Julio Cervantes MD [address] [place] [phone] COLONOSCOPY 09/30/2025 7:20 AM EST Office Visit [facility] Internal Medicine [address] [place] [address] Salvador Drew PA-C [address] [place] [phone] [email or web address] Scheduled Procedures Name Priority Associated Diagnoses Date/Ti nd COLONOSCOPY Screen for colon cancer 05/09/2025 10:30 AM EDT documented as of this encounter Visit Diagnoses Not on filedocumented in this encounter Additional Health Concerns Assessment Noted Time PHQ-2 Depression Total Score: 0 04/27/20 22 8:13 PM EDT documented as of this encounter Care Teams Editorial Director Relationship Specialty Start Date End Date Sara Au NP [email or web address] PCP - General Family Medicine 08/30/17 10/17/23 Ivy Mcdermott MD, MPH [address] [place] [phone] [email or web address] PCP - General Family Medicine 10/18/23 04/23/24 Salvador Drew PA-C [address] [place] [phone] [email or web address] PCP - General Physician Fluorescent Lamp Replacer 04/24/24 Jose Nails MD [address] [place] [address] [place] [phone] Internal Medicine 05/26/20 documented as of this encounter Additional Source Comments The information contained in this document represents components of the legal health record. It is not the complete legal health record.[facility]
--- OUTSIDE RECORDS SUMMARY | 2025-04-28 10:03 | XMS_ITS | Clinical Summary ---
Author Organization Located Within [facility] Address [address] [place] [address] Phone Care Team Providers Care Floor Tech Name Role Phone Jose Nails MD Unavailable Salvador Drew PA-C Primary Care Provider [phone] Allergies No known active allergies Medications multivitamins Chew Take 1 tablet by mouth daily. Active albuterol 90 mcg/actuation inhaler INHALE 2 PUFFS BY MOUTH EVERY 4 HOURS NEEDED FOR DIFFICULT BREATHING 8 g 2 4 Active TRELEGY ELLIPTA 200-62.5-25 mcg inhaler Inhale 1 puff into the lungs daily. 4 Active roflumilast (DALIRESP) 500 mcg Tab Take 1 tablet by mouth every morning. 5 Active atorvastatin (LIPITOR) 40 MG tabletIndications: Mixed hyperlipidemia TAKE 1 TABLET(40 MG) BY MOUTH DAILY 90 tablet 3 5 Active traMADoL (ULTRAM) 50 mg tabletIndications: Chronic upper back pain TAKE 1 TABLET(50 MG) BY MOUTH EVERY 8 HOURS NEEDED FOR PAIN 30 tablet 5 Active respiratory syncytial virus, preF A and B, PF, (ABRYSVO) 120 mcg/0.5 mL IM injection Inject 0.5 mL into the muscle once for 1 dose. 0.5 mL 5 025 Active Problems Problem Noted Date Diagnosed Date Urinary frequency 04/23/2025 Assessment & Plan (04/23/2025 10:27 AM EDT): Patient mentions that over the course of the last 3 weeks she has been experiencing urinary urgency and frequency but denies any pain. She does consume 2 cups of coffee in the morning and in the afternoon which could definitely be contributing to her symptoms. I advised her to decrease her caffeine consumption and drink more water Urinalysis obtained here in the office which revealed negative. No antibiotics prescribed . Chronic, continuous use of opioids 09/24/2024 Assessment & Plan (04/23/2025 9:58 AM EDT): UTOX screen as the patient is currently on tramadol as needed for chronic back pain Routine general medical exam ination at a health care facility 09/24/2024 Chronic obstructive pulmonary disease 09/24/2024 Flu vaccine need 04/24/2024 Assessment & Plan (04/23/2025 9:58 AM EDT): Flu shot given Assessment & Plan (04/24/2024 9:36 AM EDT): Flu vaccine given Mucopurulent chronic bronchitis 04/24/2024 Assessment & Plan (04/24/2024 9:40 AM EDT): Patient follows with a international flight attendant in [place]. She was last seen in February and has a follow up early next year. Continue daliresp and trelegy PVD (peripheral vascular disease) 04/28/2022 Overview (04/28/2022): chronic ulcers low legs, hx of skin graft - started age 39 - Diet-controlled diabetes mellitus 11/25/2020 Assessment & Plan (04/23/2025 9:58 AM EDT): Patient has a history of diabetes which is diet controlled. Patient mentions that her last hemoglobin A1c was noted at 7.1 back in September 2024 since then she had made dietary changes cutting out sugars. We will repeat a hemoglobin A1c and continue diet and exercise. Assessment & Plan (04/24/2024 9:39 AM EDT): Last hgb A1c in Sep 2023 6.7. Obtain a mircroalbumin/cr and Hgb A1c Continue diet and exercise Overweight 05/29/2020 Post-menopausal 05/28/2019 Mixed hyperlipidemia 05/25/2018 Assessment & Plan (04/23/2025 10:02 AM EDT): Continue lipitor 40mg daily and obtain a lipid panel Assessment & Plan (04/24/2024 9:37 AM EDT): Continue lipitor 40mg daily Cigarette smoker 05/25/2018 Assessment & Plan (04/23/2025 10:01 AM EDT): Patient states that she smokes a half a pack of cigarettes per day over the course of the last [address] lung cancer screening annual exam ordered. Chronic upper back pain 05/25/2018 Assessment & Plan (04/23/2025 9:59 AM EDT): Patient with a history of chronic back pain on tramadol as needed for pain. Patient mentions her chronic back pain is the same and notes that she just deals with the discomfort and takes her medication as needed. [employer] verified. Continue tramadol 50 mg every 8 hours as needed. UTOX obtained. Assessment & Plan (04/24/2024 9:38 AM EDT): Continue tramadol 50mg po daily prn [employer] verified with last script written on 01/26 for quant of 7 Opiate contract signed Resolved Problems Problem Noted Date Diagnosed Date Resolved Date Seborrheic eczema 05/28/2019 04/24/2024 Encounters Date Type Department Care Team Description 04/23/2025 10:35 AM EDT - 04/23/2025 11:59 PM EDT Hospital Encounter [facility] [address] [place] [address] Salvador Drew PA-C Discharge Disposition: Home or Self Care 04/23/2025 9:00 AM EDT Office Visit [facility] Internal Medicine [address] [place] [address] Drew, Salvador A, PA-C Chronic upper back pain (Primary Dx); Chronic, continuous use of opioids; Flu vaccine need; Diet-controlled diabetes mellitus; Cigarette smoker; Urinary frequency; Needs flu shot; Mixed hyperlipidemia 03/27/2025 Refill [facility] Internal Medicine [address] [facility] [place] [address] Salvador Drew PA-C Medication Refill 02/21/2025 Refill [facility] Internal Medicine [address] [facility] [place] [address] Salvador Drew PA-C Medication Refill from Last 3 Months Immunizations Immunization Administration Dates Next Due Influenza High-Dose Trivalen t Preservative Free IM 04/23/2025,04/24/2024 Influenza Quadrivalent Prese rvative Free IM 04/28/2022,06/02/2021,05/29/2020,05/28,05/25/2018 Influenza trivalent preserva tive free intradermal 04/26/2013 Pneumococcal conjugate PCV13 05/29/2020 Pneumococcal polysaccharide PPSV23 05/17/2016 Tdap 05/28/2019 Zoster recombinant 09/22/2023,03/17/2023 Family History Medical History Relation Comments No Known Problems Brother 1 Heart attack Brother 2 No Known Problems Daughter Amputation Father Vascular disease Father Hypertension Mother Amputation Sister Clotting disorder Sister Diabetes Sister No Known Problems Son Relation Status Comments Brother 1 Alive Brother 2 Alive Daughter Alive Father Alive Mother Alive Sister Alive Son Alive Social History Tobacco Use Types Packs/Day Years Used Date Smoking Tobacco: Every Day Cigarettes 0.5 49.7 Started: 1976 Smokeless Tobacco: Never Tobacco Cessation:Ready to Q uit: Not Asked; Counseling Given: Not Answered Comments:will start Chantix Alcohol Use Standard Drinks/Week [...] high school, GED, job training, learning the Montserratian language, technical skills, or developing parenting skills)? [...] on file Sexual Orientation Not on file Last Filed Vital Signs Vital Sign Reading Time Taken Comments Blood Pressure 114/60 04/23/2025 9:06 AM EDT Pulse 66 04/23/2025 9:06 AM EDT Temperature 36.7 C (98 F) 11/25/2022 9:11 AM EDT Respiratory Rate 16 04/23/2025 9:06 AM EDT Oxygen Saturation 98% 04/23/2025 9:06 AM EDT Inhaled Oxygen Concentration - - Weight 81.8 kg (180 lb 6.4 oz) 04/23/2025 9:06 A M EDT Height 160.7 cm (5' 3.27 ) 04/23/2025 9:06 AM ED T Body Mass Index 31.69 04/23/2025 9:06 AM EDT Plan of Treatment Upcoming Encounters Date Type Department Care Team (Late st Contact Info) Description 05/09/2025 Procedure Pass [facility] Endoscopy Admitting Dept Virtual Department [address] [place] [address] 05/09/2025 10:30 AM EDT Hospital Encounter [facility] Endoscopy Admitting Dept Virtual Department [address] [place] [address] Julio Cervantes MD [address] [place] [address] 05/09/2025 10:30 AM EDT - 05/09/2025 11:00 AM EDT Surgery [facility] Endoscopy Admitting Dept Virtual Department [address] [place] [address] Julio Cervantes MD [address] [place] [address] COLONOSCOPY 09/30/2025 7:20 AM EST Office Visit [facility] Internal Medicine [address] [place] [address] Salvador Drew PA-C [address] [place] [address] Scheduled Procedures Name Priority Associated Diagnoses Date/Ti me COLONOSCOPY Screen for colon cancer 05/09/2025 10:30 AM EDT Health Maintenance Due Date Last Done Comments COLOGUARD 2004 FIT TEST 2004 FOBT 2004 SIGMOIDOSCOPY 2004 VIRTUAL COLONOSCOPY 2004 RSV VACCINE (1 - Risk 60-74 years 1-dose series) 2019 DIABETIC EYE EXAM 11/25/2020 URINE MICROALBUMIN/CREATININE RATIO 04/28/2023 04/28/2022, 06/02/2021 COLONOSCOPY 10/26/2023 10/25/2013 COLORECTAL CANCER SCREENING 10/26/2023 LUNG CANCER SCREENING (LDCT Only) 04/12/2025 04/12/2024, 04/07/2023 COVID-19 VACCINE ( season) 2025 09/11/2021, 12/23/2020, 11/25/2020 PNEUMOCOCCAL VACCINES (50+ years) (3 of 3 - PCV20 or PCV21) 05/29/2025 05/29/2020, 05/17/2016 DEPRESSION SCREENING 09/18/2025 09/18/2024 BLOOD PRESSURE 10/21/2025 04/23/2025 HEMOGLOBIN A1C 10/21/2025 04/23/2025, 02/08/2024, 04/24/2024, Additional history exists SMOKING Hx and SMOKELESS TOBACCO SCREENING 04/23/2026 04/23/2025 MAMMOGRAM 04/27/2026 04/27/2024, 09/0 04/2023, 04/28/2022, Additional history exists Adult Td,Tdap Booster 05/28/2029 05/28/2019 HEPATITIS C SCREENING Completed 05/28/2019 OSTEOPOROSIS SCREENING INITIAL (ONE-TIME) Completed 09/22/2023, 04/28/2022 ZOSTER VACCINES Completed 09/22/2023, 03/17/2023 INFLUENZA VACCINE Completed 04/23/2025, , 04/28/2022, Additional history exists HEPATITIS A VACCINES Aged Out No long er eligible based on patient's age to complete this topic HIB VACCINES Aged Out No longer eligi ble based on patient's age to complete this topic MENINGOCOCCAL VACCINES (ACWY) Aged Out No longer eligible based on patient's age to complete this topic MENINGOCOCCAL VACCINES (B) Aged Out N o longer eligible based on patient's age to complete this topic Medical Devices Not on file Procedures Procedure Name Priority Date/Time Associated Diagnosis Comments LIPID PANEL Routine 04/23/2025 10:35 AM EDT Diet-controlled diabetes mellitus HEMOGLOBIN A1C Routine 04/23/2025 10:35 AM EDT Diet-controlled diabetes mellitus POCT URINE DIPSTICK Routine 04/23/2025 1 0:06 AM EDT HM MAMMOGRAPHY Routine 04/27/2024 11:[address] CHEST LUNG CANCER SCREENING ANNUAL Routine 04/12/2024 9:46 AM EDT Nicotine dependence, cigarettes, uncomplicated BD DXA SCREENING Routine 09/22/2023 9:25 AM EST Post-menopausal MICROALBUMIN/CREATIN INE RATIO, RANDOM URINE Routine 04/28/2022 9:33 AM EDT Diet-controlled diabetes mellitus HEPATITIS C ANTIBODY, QUALITATIVE Routine 05/28/2019 10:31 AM EDT Routine general medical examination at a health care facility COLONOSCOPY FOR RESULT ENTRY ONLY Routine 10/25/2013 from Last 3 Months or Most Recently Relevant to Health Maintenance Results * (ABNORMAL) Hemoglobin A1c (04/23/2025 10:35 AM EDT) HEMOGLOBIN A1C 6.7(H) 4.3 - 5.8 % [facility] Blood 04/23/2025 10:3 5 AM EDT 04/23/2025 10:39 AM EDT us Salvador Drew PA-C LAB BLOOD ORDERABLES Final Re sult [facility] [address] [place] [address] * Lipid panel (04/23/2025 10:35 AM EDT) HDL 41 mg/dL [facility] Comment: Interpretation <40 mg/dL: Low HDL cholesterol (major risk factor for CHD) Greater than or equal to 60 mg/dL: High HDL cholesterol ( negative risk factor for CHD) HDL - cholesterol is affected by a number of factors, e.g. smoking, excerise, hormones, sex and age. CHOLESTEROL 152 0 - 240 mg/dL [facility] TRIGLYCERIDES 91 30 - 160 mg/dL [facility] LDL 93 50 - 129 mg/dL [facility] Comment: LDL levels in terms of risk for coronary heart disease: <100 mg/dL: Optimal 100-129 mg/dL: Near or above optimal 130-159 mg/dL: Borderline high 160-189 mg/dL: High >190 mg/dL: Very High CARDIAC RISK RATIO 3.7 3.3 - 4.4 C [facility] Blood 04/23/2025 10:3 5 AM EDT 04/23/2025 10:39 AM EDT us Salvador Drew PA-C LAB BLOOD ORDERABLES Final Re sult [facility] [address] [place], [place] [id number] * POCT Urine Dipstick (Automated) (04/23/2025 10:06 AM EDT) COLOR Yellow [facility] TURBIDITY Clear [facility] GLUCOSE, POCT Negative Negative [facility] KETONE, POCT Negative Negative [facility] OCCULT BLOOD, POCT Negative Negative [facility] MED[facility] SPECIFIC GRAVITY, POCT 1.025 1.001 - 1.030 [facility] ALBUMIN, POCT Negative Negative [facility] Bili Negative Negative [facility] Urobilinogen 0.2 <1.0 [facility] NITRITE, POCT Negative Negative [facility] PH, POCT 5.5 5.0 - 8.0 [facility] WBC SCREEN, POCT Negative Negative [facility] 04/23/2025 10:0 6 AM EDT 04/23/2025 10:09 AM EDT Salvador Drew PA-C POINT OF CARE TEST ORDERABLES Final Result Performing Organization Address City/State/[facility] Co de Phone Number [facility] [address] [place] [address], [facility] [phone] * HM MAMMOGRAPHY FOR RESULT ENTRY ONLY (04/27/2024 11:12 AM EDT) us Rishi Brar MD HEALTH MAINTENANCE Final Resu lt * CT CHEST LUNG CANCER SCREENING ANNUAL (04/12/2024 9:46 AM EDT) Anatomical Region Laterality Modality Chest Computed Tomogra phy 04/17/2024 11:4 0 AM EDT Impressions 04/17/2024 12:08 PM EDT Lung-RADS Category: 2. The identified solid nodule has a very low likelihood of becoming a clinically active cancer, due to size and/or lack of growth. RECOMMENDATIONS: Continue Lung-RADS Annual Lung Cancer Screening Chest CT in 12-14 months (scheduling range) if patient meets eligibility criteria. To order, please type CT CHEST SCREENING (CT.TH.CHESTSCRS) and select ANNUAL for patient program status. {REC:CTChestScreeningFollowup} Explanation of the Lung-RADS categories can be found at: [email or web address] Narrative 04/17/2024 12:[address] CHEST LUNG CANCER SCREENING ANNUAL Referring clinician's provided indication for this examination in Epic: * Lung Cancer Screening TECHNIQUE: Low dose multidetector CT of the chest was performed without intravenous contrast using tailored dose modulation techniques. COMPARISON: CT CHEST LUNG CANCER SCREENING INITIAL 2022- FINDINGS: Devices/Tubes/Lines: None. Lungs: Central airways are patent. Nodules, series 5: 3 mm solid nodule in the RIGHT upper lobe, image 115, similar to prior. 4 mm solid nodule in the superior portion of the RIGHT lower lobe, near the fissure, image 161, new compared to prior. 3 mm solid nodule in the LEFT lower lobe, image 290, new compared to prior. Pleura: No pleural effusion or pneumothorax. Mediastinum: No thyroid nodules. Heart and pericardium are normal. Mild amount of coronary calcifications. Lymph Nodes: No enlarged supraclavicular, axillary, mediastinal, or hilar lymph nodes. Upper Abdomen: Absence of intravenous contrast and low dose technique limits sensitivity for detecting small lesions, solid organ and vascular findings. No acute abnormality detected in the visualized upper abdomen. Status post cholecystectomy. Chest Wall: No chest wall mass. Bones: Degenerative changes in the thoracic spine. No aggressive bone lesion. Procedure Note Haresh Calero MD, PhD - 04/17/2024 CT CHEST LUNG CANCER SCREENING ANNUAL Referring clinician's provided indication for this examination in Epic: *Lung Cancer Screening TECHNIQUE: Low dose multidetector CT of the chest was performed withoutintravenous contrast using tailored dose modulation techniques. COMPARISON: CT CHEST LUNG CANCER SCREENING INITIAL 2022- FINDINGS: Devices/Tubes/Lines: None. Lungs: Central airways are patent. Nodules, series 5: 3 mm solid nodule in the RIGHT upper lobe, image 115, similar to prior. 4 mm solid nodule in the superior portion of the RIGHT lower lobe, nearthe fissure, image 161, new compared to prior. 3 mm solid nodule in the LEFT lower lobe, image 290, new compared toprior. Pleura: No pleural effusion or pneumothorax. Mediastinum: No thyroid nodules. Heart and pericardium are normal. Mildamount of coronary calcifications. Lymph Nodes: No enlarged supraclavicular, axillary, mediastinal, or hilarlymph nodes. Upper Abdomen: Absence of intravenous contrast and low dose techniquelimits sensitivity for detecting small lesions, solid organ and vascularfindings. No acute abnormality detected in the visualized upper abdomen.Status post cholecystectomy. Chest Wall: No chest wall mass. Bones: Degenerative changes in the thoracic spine. No aggressive bonelesion. IMPRESSION: Lung-RADS Category: 2. The identified solid nodule has a very lowlikelihood of becoming a clinically active cancer, due to size and/or lackof growth. RECOMMENDATIONS: Continue Lung-RADS Annual Lung Cancer Screening Chest CT in 12-14 months(scheduling range) if patient meets eligibility criteria. To order, please type CT CHEST SCREENING (CT.TH.CHESTSCRS) and selectANNUAL for patient program status. {REC:CTChestScreeningFollowup} Explanation of the Lung-RADS categories can be found at:[email or web address] us Sara Au NP IMG CT CHEST Final Result * Microalbumin/creatinine ratio, random urine (04/28/2022 9:33 AM EDT) URINE MICROALBUMIN <1.2 0 - 2.3 mg/dL [facility] URINE CREATININE 81 mg/dL DISPLAY SPECIALIST [facility] MICROALB/CRE RATIO NOT CALCULATED 0 - 20 mg/g Cre [facility] Comment:due to Microalbumin <1.2 Urine (Urine) 04/28/2022 9:3 3 AM EDT 04/28/2022 9:37 AM EDT Sara Au NP URINE ORDERABLES Final Result Performing Organization Address City/[facility]/ZIP Co de Phone Number [address] [phone] * Hepatitis C antibody, qualitative (05/28/2019 10:31 AM EDT) Pathologist [facility] HCV NON-REACTIV E NON-REACTI VE [facility] Blood 05/28/2019 10:3 1 AM EDT 05/28/2019 10:34 AM EDT Sara Au NP LAB BLOOD ORDERABLES Final Resu lt Performing Organization Address City/[facility]/ZIP Co de Phone Number [address] [address] * COLONOSCOPY FOR RESULT ENTRY ONLY (10/25/2013) HM Colonoscopy hyperplastic us Historical Provider HEALTH MAINTENANCE Edited Result - Final from Last 3 Months or Most Recently Relevant to Health Maintenance Insurance HMO O O HMO HMO O HMO HMO HMO Care Teams Floor Tech Relationship Specialty Start Date End Date Salvador Drew PA-C [address] [place] [id number] [email or web address] PCP - General Physician Debt And Budget Counselor 04/24/24 Jose Nails MD [address] [place] [phone] Internal Medicine 05/26/20 Additional Source Comments The information contained in this document represents components of the legal health record. It is not the complete legal health record.Located Within [facility]
--- OUTSIDE RECORDS SUMMARY | 2025-04-28 10:03 | XMS_ITS | Encounter Summary ---
Author Organization [facility] Address [address] [place] [address] [place] [address] Phone Care Team Providers Care Political Scientist Name Role Phone Sara Au NP Primary Care Provider [phone] Jose Nails MD Unavailable [phone] Ivy Mcdermott MD, MPH Primary Care Provid er Salvador DrewC Primary Care Provider [phone] Encounter Details Date Type Department Care Team (Late st Contact Info) Description 09/22/2023 Procedure Pass [facility], Ct Scan - [address] [address] Social History Tobacco Use Types Packs/Day Years [...] work, study, or receive health care? No 09/21/2023 Education Answer Date Recorded Are you interested in help w ith more adult education (for example, completing high school, GED, job training, learning the [place] language, technical skills, or developing parenting skills)? No 09/21/2023 Are you concerned about learning? Not on file 09/21/2023 No 09/21/2023 Yes 09/21/2023 Food Answer Date Recorded Within the past 6 months we worried whether our food would run out before we got money to buy more. Never True 09/21/2023 Within the past 6 months the food we bought just didn't last and we didn't have enough money to get more. Never True Residential Stability Answer Date Recor ded What is your housing situation today? I have rhianna solitario 09/21/2023 How many times have you move d in the past 12 months? Zero (I did not move) 09/21/2023 Paying for Meds Answer Date Recorded Do you have trouble paying for medicines? No 09/21/2023 Paying Utility Bills Answer Date Record ed Do you have trouble paying your heating or elect ricity bill? No 09/21/2023 Transportation Answer Date Recorded Has the lack of transportati on kept you from medical appointments or from getting medications? No 09/21/2023 Unemployment Answer Date Recorded Are you currently unemployed or working on a part-time or temporary basis, and looking for work? No 06/02/2021 Digital Access Answer Date Recorded No 09/21/2023 Yes 09/21/2023 Do you have reliable internet access at home? Ye s 09/21/2023 Do you have a device (e.g., phone, tablet, computer) with a working camera? Yes 09/21/2023 Comments Unknown Sex and Gender Information Value Date Recorded Sex Assigned at Not on file Legal Sex Female 9:50 PM EDT Gender Identity Not on file Sexual Orientation Not on file documented as of this encounter Plan of Treatment Upcoming Encounters Date Type Department Care Team (Late st Contact Info) Description 05/09/2025 Procedure Pass [facility] Endoscopy Admitting Dept Virtual Department [address] [place] [phone] 05/09/2025 10:30 AM EDT Hospital Encounter [facility] Endoscopy Admitting Dept Virtual Department [address] [place] [address] Julio Cervantes MD [address] [place] [address] 05/09/2025 10:30 AM EDT - 05/09/2025 11:00 AM EDT Surgery [facility] Endoscopy Admitting Dept Virtual Department [address] [place] [address] Julio Cervantes MD [address] [place] [address] [email or web address] COLONOSCOPY 09/30/2025 7:20 AM EST Office Visit [facility] Internal Medicine [address] [place], [place] [phone] Salvador Drew PA-C [address] [place] [address] [email or web address] Scheduled Procedures Name Priority Associated Diagnoses Date/Ti mo COLONOSCOPY Screen for colon cancer 05/09/2025 10:30 AM EDT documented as of this encounter Visit Diagnoses Not on filedocumented in this encounter Additional Health Concerns Assessment Noted Time PHQ-2 Depression Total Score: 0 09/21/19 10:17 AM EST documented as of this encounter Care Teams Political Scientist Relationship Specialty Start Date End Date Sara Au NP [email or web address] PCP - General Family Medicine 08/30/17 10/17/23 Ivy Mcdermott MD, MPH [facility] [address] [place] [address] [email or web address] PCP - General Family Medicine 10/18/23 04/23/24 Salvador Drew PA-C [address] [place] [phone] PCP - General Physician Bill Of Lading Clerk 04/24/24 Jose Nails MD [address] [place] [address] [place] [phone] Internal Medicine 05/26/20 documented as of this encounter Additional Source Comments The information contained in this document represents components of the legal health record. It is not the complete legal health record.[facility]
--- OUTSIDE RECORDS SUMMARY | 2025-04-28 10:03 | XMS_ITS | Patient Health Record ---
Author Organization [facility] Address [address] [place] [address] Care Team Providers Care Departmental Shipping Clerk Name Role Phone Maykel LICONA, Rishi Primary Care Provider Unavaila Guille Montes Unavailable [phone] Angely SARMIENTO, Sara Unavailable Unavailable Reason For Referral No Information Medications Medication SIG (Take, Route, Fr equency, Duration) Notes Start Date End Date Status Simvastatin 80mg Act rufino traMADol HCl 50mg Ac tive Suprep Bowel Prep 1 as directed Orally 1 for 1 dose 06/20/2013 08/14/2024 Active Aspir-81 81mg Active Problems Problem Type SNOMED Code ICD Code Onset Dates Problem Status W/U Status Risk Notes Problem Colon cancer screening (738835893) Colon cancer screening (V76.51) Active confirmed Problem Long-term current use of aspirin (1024822938452 03) Aspirin long-term use (V58.66) Active confirmed Plan Of Treatment Future Test Test Name Order Date COLONOSCOPY 06/20/2013 Insurance Providers Payer Name Payer Address Payer Phone Subscriber Number Group Number Insured Name Patient Relationship to Insured Coverage Start Date Coverage End Date [facility] [address] [place] [phone] [id number] PAPITO LAM Self - patient is the insured Medical (General) History Medical History History ICD Code type II diabetes elevated cholesterol Surgical History Surgery Date(Month/Year) cholecystectomy 1985
== END 2025-04-28 09:16 | disposition home or self-care (01) ==
LOC: HO.HPS 08:48
PROVIDERS: PCP Internal Medicine; Visit Provider Hospitalist
DX: J41.8 Mixed simple and mucopurulent chronic bronchitis (principal); R05.3 Chronic cough; R06.09 Other forms of dyspnea; F17.200 Nicotine dependence, unspecified, uncomplicated
CPT/HCPCS: 99214

== ENCOUNTER → 2025-05-03 07:30 | Outpatient (BNV) | payer OTHER, SELFPAY | PROVIDERS: PCP Internal Medicine; Visit Provider Internal Medicine | DX: Z12.31 Encounter for screening mammogram for malignant neoplasm of breast (principal) | CPT/HCPCS: 77063; 77067 ==

== ENCOUNTER 2025-05-03 07:33 | Outpatient (REF) | payer OTHER, SELFPAY ==
--- OUTSIDE RECORDS SUMMARY | 2025-05-03 07:37 | XMS_ITS | Patient Health Record ---
Author Organization [facility] Address [address] [place] [address] Care Team Providers Care Television Tube Inspector Name Role Phone Maykel LICONA, Rishi Primary Care Provider Unavaila Guille Montes Unavailable [phone] Angely SARMIENTO, Sara Unavailable Unavailable Reason For [...] Status Risk Notes Problem Colon cancer screening (435381649) Colon cancer screening (V76.51) Active confirmed Problem Long-term current use of aspirin (2218739754260 03) Aspirin long-term use (V58.66) Active confirmed Plan Of Treatment Future Test Test Name Order Date COLONOSCOPY 06/20/2013 Insurance Providers Payer Name Payer Address Payer Phone Subscriber Number Group Number Insured Name Patient Relationship to Insured Coverage Start Date Coverage End Date [facility] [address] [place] [phone] [id number] [place] Self - patient is the insured Medical (General) History Medical History History ICD Code type II diabetes elevated cholesterol Surgical History Surgery Date(Month/Year) cholecystectomy 1985
--- OUTSIDE RECORDS SUMMARY | 2025-05-03 07:37 | XMS_ITS | Encounter Summary ---
Author Organization [facility] Address [address] [place] [address] [place] [address] Phone Care Team Providers Care Eastern Philosophy Professor Name Role Phone Sara Au NP Primary Care Provider [phone] Jose Nails MD Unavailable [phone] Ivy Mcdermott MD, MPH Primary Care Provid er Salvador DrewC Primary Care Provider Encounter Details Date Type Department Care Team (Late st Contact Info) Description 04/28/2022 Procedure Pass [facility], Ct Scan - [address] [address] Social History Tobacco Use Types Packs/Day Years [...] high school, GED, job training, learning the Haitian language, technical skills, or developing parenting skills)? [...] Care Team (Late st Contact Info) Description 04/23/2025 Procedure Pass [facility], Ct Scan - [address] [address] 05/09/2025 Procedure Pass [facility] Admitting Dept Virtual Department [address] [place] [address] 05/09/2025 10:30 AM EDT Hospital Encounter [facility] Admitting [facility] Virtual Department [address] [place] [address] Julio Cervantes MD [address] [place] [address] 05/09/2025 10:30 AM EDT - 05/09/2025 11:00 AM EDT Surgery [facility] Endoscopy Admitting Dept Virtual Department [address] [place] [address] Julio Cervantes MD [address] [place] [address] COLONOSCOPY 05/23/2025 8:00 AM EDT Appointment [facility], Ct Scan - [facility] [address] [place] [address] Salvador Drew PA-C [address] [place] [address] 09/30/2025 7:20 AM EST Office Visit [facility] Internal Medicine [address] [place], [place] [phone] Salvador Drew PA-C [address] [place], [place] [phone] Scheduled Procedures Name Priority Associated Diagnoses Date/Ti me COLONOSCOPY Screen for colon cancer 05/09/2025 10:30 AM EDT documented as of this encounter Visit Diagnoses Not on filedocumented in this encounter Additional Health Concerns Assessment Noted Time PHQ-2 Depression Total Score: 0 04/27/20 22 8:13 PM EDT documented as of this encounter Care Teams Eastern Philosophy Professor Relationship Specialty Start Date End Date Sara Au NP PCP - General Family Medicine 08/30/17 10/17/23 Ivy Mcdermott MD, MPH [address] [place] [address] PCP - General Family Medicine 10/18/23 04/23/24 Salvador Drew PA-C [address] [place] [address] PCP - General Physician Engineering Executive 04/24/24 Jose Nails MD [address] [place] [address] [facility] [place] [address] Internal Medicine 05/26/20 documented as of this encounter Additional Source Comments The information contained in this document represents components of the legal health record. It is not the complete legal health record.[facility]
--- OUTSIDE RECORDS SUMMARY | 2025-05-03 07:37 | XMS_ITS | Encounter Summary ---
Author Organization [facility] Address [address] [place] [address] [place] [address] Phone Care Team Providers Care Warehouse Record Clerk Name Role Phone Sara Au NP Primary Care Provider [phone] Jose Nails MD Unavailable [phone] Ivy Mcdermott MD, MPH Primary Care Provid er Salvador DrewC Primary Care Provider [phone] Encounter Details Date Type Department Care Team (Late st Contact Info) Description 09/22/2023 Procedure Pass [facility], Ct Scan - [address] [address] Social History Tobacco Use Types Packs/Day Years [...] high school, GED, job training, learning the Algerian language, technical skills, or developing parenting skills)? [...] st Contact Info) Description 04/23/2025 Procedure Pass [facility], Ct Scan - [address] [address] 05/09/2025 Procedure Pass [facility] End[facility] Admitting Dept Virtual Department [address] [place] [address] 05/09/2025 10:30 AM EDT Hospital Encounter [facility] Admitting Dept Virtual Department [address] [place] [address] Julio Cervantes MD [address] [place] [address] 05/09/2025 10:30 AM EDT - 05/09/2025 11:00 AM EDT Surgery [facility] Endoscopy Admitting Dept Virtual Department [address] [place] [address] Julio Cervantes MD [address] [place] [address] COLONOSCOPY 05/23/2025 8:00 AM EDT Appointment [facility], Ct Scan - [facility] [address] [place] [address] Savlador Drew PA-C [address] [place] [address] 09/30/2025 7:20 AM EST Office Visit [facility] Internal Medicine [address] [place] [address] Salvador Drew PA-C [address] [place] [address] Scheduled Procedures Name Priority Associated Diagnoses Date/Ti la COLONOSCOPY Screen for colon cancer 05/09/2025 10:30 AM EDT documented as of this encounter Visit Diagnoses Not on filedocumented in this encounter Additional Health Concerns Assessment Noted Time PHQ-2 Depression Total Score: 0 09/21/19 10:17 AM EST documented as of this encounter Care Teams Warehouse Record Clerk Relationship Specialty Start Date End Date Sara Au SOCIAL MEDIA DESIGNER PCP - General Family Medicine 08/30/17 10/17/23 Ivy Mcdermott MD, MPH [address] [place] [address] [address] [place] [address] PCP - General Family Medicine 10/18/23 04/23/24 Salvador Drew PA-C [address] [place] [address] [email or web address] PCP - General Physician Frame Stripper And Crusher 04/24/24 Jose Nails MD [address] [place] [phone] Internal Medicine 05/26/20 documented as of this encounter Additional Source Comments The information contained in this document represents components of the legal health record. It is not the complete legal health record.[facility]
--- OUTSIDE RECORDS SUMMARY | 2025-05-03 07:37 | XMS_ITS | Clinical Summary ---
Author Organization [facility] Address [address] [place] [address] Phone Care Team Providers Care Retail Director Name Role Phone Jose Nails MD Unavailable Salvador Drew PA-C Primary Care Provider [phone] Allergies No known active allergies Medications multivitamins [...] 9:40 AM EDT): Patient follows with a preschool assistant teacher in [place]. She was last seen in February and [...] [facility] [address] [place] [address] Salvador Drew PA-C Discharge Disposition: Home or Self Care 04/23/2025 9:00 AM EDT Office Visit [facility] Internal Medicine [address] [place] [address] Drew, Salvador A, PA-C Chronic upper back pain (Primary Dx); Chronic, continuous use of opioids; Flu vaccine need; Diet-controlled diabetes mellitus; Cigarette smoker; Urinary frequency; Needs flu shot; Mixed hyperlipidemia 03/27/2025 Refill [facility] Internal Medicine 40 [facility] [place] [address] Salvador Drew PA-C Medication Refill 02/21/2025 Refill [facility] Internal Medicine 40 [facility] [place] [address] Salvador Drew PA-C Medication Refill from Last [...] high school, GED, job training, learning the Puerto Rican language, technical skills, or developing parenting skills)? [...] st Contact Info) Description 04/23/2025 Procedure Pass [facility], Ct Scan [address] [address] 05/09/2025 Procedure Pass [facility] Endoscopy Admitting Dept Virtual Department [address] [place] [address] 05/09/2025 10:30 AM EDT Hospital Encounter [facility] End[facility] Admitting Dept Virtual Department [address] [place] [address] Julio Cervantes MD [address] [place] [address] 05/09/2025 10:30 AM EDT - 05/09/2025 11:00 AM EDT Surgery [facility] Endoscopy Admitting Dept Virtual Department [address] [place] [address] Julio Cervantes MD [address] [place] [address] COLONOSCOPY 05/23/2025 8:00 AM EDT Appointment [facility], Ct Scan [address] [address] Salvador Drew PA-C [address] [place] [email or web address] 09/30/2025 7:20 AM EST Office Visit [facility] Medicine [address] [place] [address] Salvador Drew PA-C [address] [place] [address] [email or web address] Scheduled Procedures Name Priority Associated Diagnoses Date/Ti [...] PRESSURE 10/21/2025 04/23/2025 HEMOGLOBIN A1C 10/21/2025 04/23/2025, 0208/2024, 04/24/2024, Additional history exists SMOKING Hx and [...] HEMOGLOBIN A1C 6.7(H) 4.3 - 5.8 % [facility] Blood 04/23/2025 10:3 5 AM EDT 04/23/2025 10:39 AM EDT Salvador Drew PA-C LAB BLOOD ORDERABLES Final Re sult Performing Organization Address [facility] Co de Phone Number [address] [address] * Lipid panel (04/23/2025 10:35 AM EDT) HDL 41 mg/dL [facility] Comment: Interpretation <40 mg/dL: Low HDL cholesterol (major risk factor for CHD) Greater than or equal to 60 mg/dL: High HDL cholesterol ( negative risk factor for CHD) HDL - cholesterol is affected by a number of factors, e.g. smoking, excerise, hormones, sex and age. CHOLESTEROL 152 0 - 240 mg/dL [facility] TRIGLYCERIDES 91 30 - 160 mg/dL [facility] LDL 93 50 - 129 mg/dL [facility] Comment: LDL levels in terms of risk for coronary heart disease: <100 mg/dL: Optimal 100-129 mg/dL: Near or above optimal 130-159 mg/dL: Borderline high 160-189 mg/dL: High >190 mg/dL: Very High CARDIAC RISK RATIO 3.7 3.3 - 4.4 C [facility] Blood 04/23/2025 10:3 5 AM EDT 04/23/2025 10:39 AM EDT Salvador Drew PA-C LAB BLOOD ORDERABLES Final Re sult Performing Organization Address City/[facility]/ZIP Co de Phone Number [address] [address] * POCT Urine Dipstick (Automated) (04/23/2025 10:06 AM EDT) COLOR Yellow [facility] TURBIDITY Clear [facility] GLUCOSE, POCT Negative Negative [facility] KETONE, POCT Negative Negative [facility] OCCULT BLOOD, POCT Negative Negative [facility] SPECIFIC GRAVITY, POCT 1.025 1.001 - 1.030 [facility] MEDICINE ALBUMIN, POCT Negative Negative [facility] Bili Negative Negative [facility] Urobilinogen 0.2 <1.0 [facility] NITRITE, POCT Negative Negative [facility] PH, POCT 5.5 5.0 - 8.0 [facility] INTER[facility]IC[facility] WBC SCREEN, POCT Negative Negative [facility] 04/23/2025 10:0 6 AM EDT 04/23/2025 10:09 AM EDT Salvador Drew PA-C POINT OF CARE TEST ORDERABLES Final Result Performing Organization Address City/State/[facility] Co de Phone Number [facility] [address] [place] [address], [facility] [phone] * MAMMOGRAPHY FOR RESULT ENTRY ONLY (04/27/2024 11:12 AM EDT) Rishi Brar MD HEALTH MAINTENANCE Final Resu [...] clinician's provided indication for this examination in [facility]: * Lung Cancer Screening TECHNIQUE: Low dose multidetector CT of the chest was performed without intravenous contrast using tailored dose modulation techniques. COMPARISON: CT CHEST LUNG CANCER SCREENING INITIAL FINDINGS: Devices/Tubes/Lines: None. Lungs: Central airways are [...] clinician's provided indication for this examination in [facility]: *Lung Cancer Screening TECHNIQUE: Low dose multidetector [...] the Lung-RADS categories can be found at:[email or web address] Sara Au NP IMG CT CHEST Final Result * Microalbumin/creatinine ratio, random urine (04/28/2022 9:33 AM EDT) URINE MICROALBUMIN <1.2 0 - 2.3 mg/dL [facility] URINE CREATININE 81 mg/dL [facility] MICROALB/CRE RATIO NOT CALCULATED 0 - 20 mg/g Cre [facility] Comment:due to Microalbumin <1.2 Urine (Urine) 04/28/2022 9:3 3 AM EDT 04/28/2022 9:37 AM EDT us Sara Au NP URINE ORDERABLES Final Result [facility] [address] [place] [address] * Hepatitis C antibody, qualitative (05/28/2019 10:31 AM EDT) HCV NON-REACTIV E NON-REACTI VE [facility] Blood 05/28/2019 10:3 1 AM EDT 05/28/2019 10:34 AM EDT Sara Au NP LAB BLOOD ORDERABLES Final Resu lt [facility] [address] [place] [address] * COLONOSCOPY FOR RESULT ENTRY ONLY (10/25/2013) HM Colonoscopy hyperplastic us Historical Provider HEALTH MAINTENANCE Edited Result - Final from Last 3 Months or Most Recently Relevant to Health Maintenance Insurance O O HMO O HMO HMO HMO HMO Care Teams Retail Director Relationship Specialty Start Date End Date Salvador Drew PA-C [address] [place] [address] [email or web address] PCP - General Physician Harness Placer 04/24/24 Jose Nails MD [address] [place] [phone] Internal Medicine 05/26/20 Additional Source Comments The information contained in this document represents components of the legal health record. It is not the complete legal health record.[facility]
== END 2025-05-03 07:34 | disposition home or self-care (01) ==
LOC: HO.MAMMO 07:33
PROVIDERS: PCP Internal Medicine; Visit Provider Internal Medicine
DX: Z12.31 Encounter for screening mammogram for malignant neoplasm of breast (principal)
CPT/HCPCS: 77063; 77067